=== PATIENT | female | born 1985 | race Two or more races ===

== ENCOUNTER 2021-07-31 05:13 | Inpatient (IN) ==
[2021-07-31] MEDS ORDERED: BUTORPHANOL 2 MG/ML VIAL IV PRN (05:35)
[2021-07-31] MEDS ORDERED: MEPERIDINE 50 MG/1 ML VIAL IV PRN (05:35)
[2021-07-31] MEDS ORDERED: ONDANSETRON 4 MG/2 ML VIAL IV PRN (05:35)
[2021-07-31] MEDS ORDERED: GLUCAGON 1 MG VIAL IM PRN ×2 (05:59→16:29)
[2021-07-31] MEDS ORDERED: LACTATED RINGERS 1,000 ML IV SCH ×2 (06:00→10:00)
[2021-07-31] MEDS ORDERED: OXYTOCIN/LR 20 UNIT/1,000 ML BAG IV SCH (06:00)
[2021-07-31] MEDS ORDERED: DEXTROSE 50% 25 GM/50 ML SYRINGE IV PRN ×2 (06:01→16:29)
[2021-07-31 06:13] LABS: Basophils % 0.3 % (0.0-0.8); Eosinophils # 0.1 10*3/uL (0.0-0.87); Eosinophils % 0.7 % (0.00-10.9); Hematocrit 33.1 VOL% (35.7-47.0); Hemoglobin 10.1 GM/DL (12.0-16.0); Immature Granulocytes % 0.6 %; Immature Granulocytes Absolute 0.04 #; Lymphocytes # 2.4 10*3/uL (1.4-4.0); Lymphocytes % 33.1 % (21.3-54.2); Mean Corpuscular HGB Conc 30.5 GM/DL (32-36); Mean Platelet Volume 11.1 FL (9.6-12.0); Monocytes % 8.4 % (1.7-12.7); Neutrophils % 56.9 % (38.7-73.9); Platelet Count 195 T/CUMM (130-400); Red Blood Count 4.66 MC/CUMM (3.8-5.5); White Blood Count 7.3 T/CUMM (4-12)
[2021-07-31] MEDS ORDERED: AMPICILLIN INJ 2,000 MG in SODIUM CHLORIDE 0.9% 100 ML IV ONE (06:30)
[2021-07-31 06:31] LABS: Albumin 2.3 G/DL (3.4-5.0); Bilirubin,Total 0.5 MG/DL (0.20-1.00); Calcium 8.6 MG/DL (8.5-10.1); Osmolality,Calculated 274.7 MOS/KG (273-304); Potassium 4.3 MMOL/L (3.5-5.1); Total Protein 6.7 G/DL (6.4-8.2)
[2021-07-31] MEDS: INSULIN REGULAR 100 UNIT/ML SUBCUT SCH ×3 (07:06→16:29)
[2021-07-31] MEDS ORDERED: FAMOTIDINE 20 MG/2 ML VIAL IV ONE (09:51)
[2021-07-31] MEDS ORDERED: CITRIC ACID/SODIUM CITRATE 30 ML UDCUP PO ONE (09:51)
[2021-07-31] MEDS ORDERED: diphenhydrAMINE 50 MG/1 ML VIAL IV PRN ×2 (09:51)
[2021-07-31] MEDS ORDERED: PROMETHAZINE 25 MG/1 ML VIAL IM ONE (09:51)
[2021-07-31] MEDS ORDERED: ePHEDrine 50 MG/ML VIAL IV PRN (09:51)
[2021-07-31] MEDS ORDERED: NALOXONE 0.4 MG/ML VIAL IV PRN (09:51)
[2021-07-31] MEDS ORDERED: LACTATED RINGERS 1,000 ML IV ONE (09:51)
[2021-07-31] MEDS ORDERED: CITRIC ACID/SODIUM CITRATE 30 ML UDCUP ONE (09:53)
[2021-07-31] MEDS ORDERED: ePHEDrine 50 MG/ML VIAL ONE (09:53)
[2021-07-31] MEDS ORDERED: fentaNYL 2 MCG/ROPIV 0.2% EPID 100 ML EPIDURAL SCH (10:00)
[2021-07-31] MEDS ORDERED: AMPICILLIN INJ 1,000 MG in SODIUM CHLORIDE 0.9% 100 ML IV SCH (10:30)
[2021-07-31] MEDS ORDERED: CARBOPROST TROMETHAMINE 250 MCG/ML AMP IM ONE (10:40)
[2021-07-31] MEDS ORDERED: TRANEXAMIC ACID 1,000 MG/10 ML VIAL ONE (10:40)
[2021-07-31] MEDS ORDERED: METHYLERGONOVINE 0.2 MG/1 ML AMP ONE (10:40)
[2021-07-31] MEDS ORDERED: OXYTOCIN/LR 20 UNIT/1,000 ML BAG IV ONE ×2 (10:40→16:27)
[2021-07-31] MEDS ORDERED: SODIUM CHLORIDE 0.9% 0 ML IV ONE (10:40)
[2021-07-31] MEDS ORDERED: miSOPROStoL 200 MCG TABLET ONE (10:40)
[2021-07-31 12:31] LABS: Bacteria,Urine Occasional /HPF (Few); Bilirubin,Urine Negative (Negative); Blood, Urine Negative (Negative); Glucose,Urine (UA) 50 mg/dL (Negative); Ketones,Urine Negative (Negative); Mucus,Urine Occasional /LPF (Occasional); Nitrite,Urine Negative (Negative); Protein,Urine Negative; RBC,Urine <1 /HPF (0-4); Squamous Epithelial Cell,Urine Occasional /HPF (0-10); Urine Appearance CLEAR (Clear); Urine Color Straw (Yellow); Urine Urobilinogen < 2.0 EU/DL (<2.0)
[2021-07-31 13:12] LABS: Cord Arterial Blood HCO3 26.7 MMOL/L
[2021-07-31 13:15] LABS: Cord Venous Blood HCO3 22.4 MMOL/L; Cord Venous Blood PCO2 49.4 MMHG; Cord Venous Blood PO2 27.2 MMHG
[2021-07-31] MEDS ORDERED: HYDROCORTISONE 2.5% RECTAL CREAM 30 GM TUBE TOP PRN (16:27)
[2021-07-31] MEDS ORDERED: LANOLIN 50% CREAM 0.3 OZ TUBE TOP PRN (16:27)
[2021-07-31] MEDS ORDERED: MEASLES/MUMPS/RUBELLA VACCINE 0.5 ML VIAL SUBCUT ONE (16:27)
[2021-07-31] MEDS ORDERED: ACETAMINOPHEN 325 MG TABLET PO PRN (16:27)
[2021-07-31] MEDS ORDERED: BENZOCAINE 20%/MENTHOL 0.5% SPRAY 56 GM CAN TOP PRN (16:27)
[2021-07-31] MEDS ORDERED: oxyCODONE/ACETAMINOPHEN 5-325 MG TABLET PO PRN (16:27)
[2021-07-31] MEDS ORDERED: DIPH/TET/ACEL PERT BOOSTER VACCINE 0.5 ML VIAL IM ONE (16:27)
[2021-07-31] MEDS ORDERED: WITCH HAZEL PADS 100/JAR TOP PRN (16:27)
[2021-07-31] MEDS ORDERED: BISACODYL 10 MG SUPP RECTAL PRN (16:27)
[2021-07-31] MEDS ORDERED: RHO(D) IMMUNE GLOBULIN 300 MCG SYRINGE IM ONE (16:27)
[2021-07-31] MEDS: IBUPROFEN 800 MG TABLET PO PRN (17:20)
[2021-07-31] MEDS: oxyCODONE/ACETAMINOPHEN 5-325 MG TABLET PO PRN (17:20)
[2021-07-31] MEDS: DOCUSATE SODIUM 100 MG CAPSULE PO SCH (21:32)
[2021-08-01] MEDS ORDERED: INSULIN REGULAR 100 UNIT/ML SUBCUT SCH (00:44)
[2021-08-01] MEDS ORDERED: INSULIN REGULAR 100 UNIT/ML ONE (00:48)
[2021-08-01] MEDS: IBUPROFEN 800 MG TABLET PO PRN ×2 (04:10→17:55)
[2021-08-01 05:27] LABS: Basophils % 0.3 % (0.0-0.8); Eosinophils # 0.1 10*3/uL (0.0-0.87); Eosinophils % 0.9 % (0.00-10.9); Hematocrit 30.9 VOL% (35.7-47.0); Hemoglobin 9.5 GM/DL (12.0-16.0); Immature Granulocytes % 0.6 %; Immature Granulocytes Absolute 0.06 #; Lymphocytes # 2.6 10*3/uL (1.4-4.0); Lymphocytes % 24.7 % (21.3-54.2); Mean Corpuscular HGB Conc 30.7 GM/DL (32-36); Mean Corpuscular Volume 71.7 FL (87-102); Mean Platelet Volume 10.6 FL (9.6-12.0); Monocytes % 9.3 % (1.7-12.7); Neutrophils % 64.2 % (38.7-73.9); Platelet Count 158 T/CUMM (130-400); Red Blood Count 4.31 MC/CUMM (3.8-5.5); Red Cell Distribution Width 13.8 % (9.3-17.3); White Blood Count 10.6 T/CUMM (4-12)
[2021-08-01] MEDS: DOCUSATE SODIUM 100 MG CAPSULE PO SCH ×2 (08:59→20:24)
[2021-08-01] MEDS: oxyCODONE/ACETAMINOPHEN 5-325 MG TABLET PO PRN (13:00)
[2021-08-01] MEDS: INSULIN REGULAR 100 UNIT/ML SUBCUT SCH (18:07)
[2021-08-02] MEDS: INSULIN REGULAR 100 UNIT/ML SUBCUT SCH ×3 (00:54→12:31)
[2021-08-02 08:15] VITALS: BP 121/57
[2021-08-02] MEDS: DOCUSATE SODIUM 100 MG CAPSULE PO SCH (09:24)
== END 2021-08-02 14:30 | disposition home or self-care (01) | DRG 807 ==
LOC: N.LD 05:13 → N.OB 16:28 → N.LD 08-01 17:21
PROVIDERS: ADMIT Obstetrics & Gynecology; ATTEND Obstetrics & Gynecology